=== PATIENT | female | born 1975 ===

== ENCOUNTER 2017-04-20 16:03 | Emergency (ER) | payer SELFPAY ==
[2017-04-20 16:12] VITALS: PULSE 73; RESP 19; TEMP 96.3; O2SAT 100
[2017-04-20 17:45] LABS: BASO % 0.8 % (0.0-2.0); EOS % 0.2 % (0.0-4.0); HEMATOCRIT 34.5 % (34.0-47.0); MEAN CELL VOLUME 84.4 fl (81.0-99.0); MEAN CORPUSCULAR HEMOGLOBIN 27.3 pg (27.0-31.0); MEAN CORPUSCULAR HGB CONC 32.4 g/dL (33.0-37.0); MEAN PLATELET VOLUME 8.8 fl (7.2-11.7); MONO # 0.3 K/uL (0.0-0.8); MONO % 6.6 % (0.0-10.0); NEUT # 3.7 K/uL (1.8-7.0); NEUT % 73.4 % (50.0-75.0); RED CELL DISTRIBUTION WIDTH 16.9 % (11.5-14.5); WHITE BLOOD COUNT 5.1 K/uL (4.8-10.8)
--- NOTE | 2017-04-20 17:47 | ED PDOC ---
HPI: Chest Pain Time Seen by Provider: 04/20/17 16:38 Chief Complaint (Nursing): Chest Pain Chief Complaint (Provider): Pain Under Left Breast History/Exam Limitations: no limitations Onset/Duration Of Symptoms: Days (2 days ago) Current Symptoms Are (Timing): Still Present Additional Complaint(s): 41 y/o female with a past medical history of hypertension, presents to the ED complaining of pain underneath her left breast, with an onset of 2 days ago. Patient informs the provider that her pain also worsens whenever she takes a deep breath or stretches her back. She also denies of any shortness of breath, trauma, cough, fever, palpitations, calf pain, or leg swelling. Patient also reports of no recent travel, smokes marijuana, but denies the use of cigarettes or alcohol. Of note, she has non-contributory surgical history and denies the use of oral contraceptive pills. Past Medical History Reviewed: Historical Data, Nursing Documentation, Vital Signs Vital Signs: Last Vital Signs Temp 96.3 F L 04/20/17 16:07 Pulse 73 04/20/17 16:07 Resp 19 04/20/17 16:07 BP 120/73 04/20/17 16:07 Pulse Ox 100 04/20/17 21:52 - Medical History PMH: HTN - Surgical History Surgical History: No Surg Hx - Family History Family History: States: Unknown Family Hx - Social History Current smoker - smoking cessation education provided: No Alcohol: None Drugs: Cannabis - Home Medications Home Medications: Ambulatory Orders Medication Instructions Recorded Naproxen [Naprosyn] 500 mg PO Q12 #14 tab 04/20/17 - Allergies Allergies/Adverse Reactions: Allergies Allergy/AdvReac Type Severity Reaction Status Date / Time aspirin Allergy RASH Verified 04/20/17 16:10 JJ Risk Score for UA/NSTEMI - JJ Risk Score Age > 64: NO 3 or more CAD Risk Factors: NO Known CAD (Stenosis greater than 50%): NO Aspirin use in past 7 days: NO Severe Angina: NO EKG ST changes greater than 0.5mm: NO Positive Cardiac Marker: NO JJ Score: 0 Risk %: 5% Wells Criteria for PE - Wells Criteria for Pulmonary Embolism Clinical Signs and Symptoms of DVT: No P.E is #1 Diagnosis, or Equally Likely: No Heart Rate >100: No Immobilization at least 3 days;Surgery previous 4 weeks: No Previous, objectively diagnosed PE or DVT: No Hemoptysis: No Malignancy w/treatment within 6 months, or palliative: No Total Score: 0 Review of Systems ROS Statement: Except As Marked, All Systems Reviewed And Found Negative Constitutional: Negative for: Fever Cardiovascular: Negative for: Palpitations Respiratory: Negative for: Cough, Shortness of Breath Musculoskeletal: Negative for: Leg Pain (calf pain or leg swelling) Physical Exam - Reviewed Nursing Documentation Reviewed: Yes Vital Signs Reviewed: Yes - Physical Exam Appears: Positive for: Non-toxic, No Acute Distress Head Exam: Positive for: ATRAUMATIC Skin: Positive for: Normal Color, Warm Eye Exam: Positive for: Normal appearance ENT: Positive for: Normal ENT Inspection Neck: Positive for: Normal, Painless ROM, Supple Cardiovascular/Chest: Positive for: Regular Rate, Rhythm. Negative for: Murmur Respiratory: Positive for: Normal Breath Sounds. Negative for: Respiratory Distress Gastrointestinal/Abdominal: Positive for: Normal Exam, Soft. Negative for: Tenderness Back: Positive for: Normal Inspection Extremity: Positive for: Normal ROM. Negative for: Calf Tenderness, Deformity, Other (leg edema) Neurologic/Psych: Positive for: Alert, Oriented. Negative for: Motor/Sensory Deficits - Laboratory Results Result Diagrams: 04/20/17 17:36 04/20/17 17:36 - ECG Interpretation Of ECG: NSR @ 73, no ST-T changes. O2 Sat by Pulse Oximetry: 100 (RA) Pulse Ox Interpretation: Normal - Radiology X-Ray: Interpreted by Me X-Ray Interpretation: No Acute Disease Medical Decision Making Medical Decision Making: Time: --17:01 Impression: --41 y/o female with Pleuritic Chest Pain Plan: --EKG --Labs --Troponin I --ED Urine --D Dimer Coag --PTT --PT --Chest X-ray Reassess --19:00 Patient to be signed out to Dr. Alex Hogue pending CT chest. Scribe Attestation: Documented by Alexi Noland acting as a scribe for Laxmi Merlos MD. Disposition - Clinical Impression Clinical Impression: Pleuritic chest pain - Patient ED Disposition Is Patient to be Admitted: Transfer of Care Discussed With : Alex Hogue Doctor Will See Patient In The: ED - Disposition Referrals: [facility] [Outside] Disposition: Transfer of Care Disposition Time: 19:00 (pending CT chest ) Condition: IMPROVED Prescriptions: Naproxen [Naprosyn] 500 mg PO Q12 #14 tab Instructions: Pleurisy (ED) Forms: [facility] (Azeri) Print Language: ARMENIAN Patient Signed Over To: Alex Hogue
[2017-04-20 17:59] LABS: ALB/GLOB RATIO 1.5 (1.0-2.1); ALKALINE PHOSPHATASE 57 U/L (38-126); ALT/SGPT 31 U/L (9-52); AST/SGOT 21 U/L (14-36); BILIRUBIN,TOTAL 0.6 mg/dl (0.2-1.3); BLOOD UREA NITROGEN 13 mg/dl (7-17); CALCIUM 9.1 mg/dL (8.4-10.2); CARBON DIOXIDE 26 mmol/L (22-30); CHLORIDE 106 mmol/L (98-107); GFR AFRICAN-AMERICAN > 60; GLUCOSE,RANDOM 82 mg/dL (65-105); POTASSIUM 4.2 MMOL/L (3.6-5.0); SODIUM 140 mmol/l (132-148); TOTAL PROTEIN 7.1 G/DL (6.3-8.2)
[2017-04-20 18:08] LABS: PARTIAL THROMBOPLASTIN TIME 23.9 Seconds (25.6-37.1)
[2017-04-20] MEDS ORDERED: Iodixanol 320 MG/ML 100 ML BOTTLE IV ONE (19:25)
--- NOTE | 2017-04-20 19:30 | ED PDOC ---
- Laboratory Results Result Diagrams: 04/20/17 17:36 04/20/17 17:36 - ECG O2 Sat by Pulse Oximetry: 100 (RA) Pulse Ox Interpretation: Normal Medical Decision Making Medical Decision Making: --19:00 Patient signed out to me by Dr. Merlos pending CT chest. Reassess --21:50 FINDINGS:CT Angiography Chest With Intravenous Contrast Pulmonary arteries: The main pulmonary artery measures 20 mm. No pulmonary embolism is identified. Aorta: The ascending thoracic aorta measures 26 mm. No thoracic aortic aneurysm. Lungs: Subpleural noncalcified nodule in the superior segment of the right lower lobe measuring 4 mm. Pleural space: Trace right pleural effusion. No pneumothorax. Heart: Unremarkable. No cardiomegaly. No significant pericardial effusion. No evidence of RV dysfunction. Mediastinum: Induration of anterior mediastinal fat which may reflect thymic tissue, upper normal for age. Bones/joints: No acute fracture. No dislocation. Soft tissues: Unremarkable. Lymph nodes: Unremarkable. No enlarged lymph nodes. Liver: The liver demonstrates several low attenuation foci including exophytic masses which measure up to approximately 4 cm. There is question of some nodular peripheral enhancement the in the more intraparenchymal lesions and may reflect hemangiomas. IMPRESSION: 1. Trace right pleural effusion. 2. 4 mm subpleural nodule in the posterior segment of the right upper lobe which is likely a lymph node. 3. Low attenuation masses in the liver. There is some suggestion of nodular peripheral enhancement and suggests the possibility of hemangiomas. 4. No pulmonary embolism is identified. In low-risk patients (minimal or absent history of smoking or other known risk factors), no follow-up is necessary. For high-risk patients (history of smoking or other known risk factors), an optional chest CT at 12 months could be performed. --21:50 Diagnosis: Pleuritic chest pain Patient to be discharged home with prescription for Naprosyn. Scribe Attestation: Documented by Alexi Noland acting as a scribe for Alex Hogue MD. Disposition - Clinical Impression Clinical Impression: Pleuritic chest pain - POA Present On Arrival: None - Disposition Referrals: [facility] [Outside] Disposition: Routine/Home Disposition Time: 21:50 Condition: IMPROVED Prescriptions: Naproxen [Naprosyn] 500 mg PO Q12 #14 tab Instructions: Pleurisy (ED) Forms: [employer] (Yakut), [facility] ED School/Work Excuse Print Language: GEORGIAN
[2017-04-20 23:15] VITALS: BP 125/72
--- NOTE | 2017-04-21 10:42 | CT ---
PROCEDURE: CT Chest with contrast (Pulmonary Angiogram) HISTORY: Pleuritic chest pain COMPARISON: None available. TECHNIQUE: Axial computed tomography images were obtained of the chest in the pulmonary arterial phase of enhancement. Coronal and sagittal reformatted images were created and reviewed. Intravenous contrast dose: 98 cc Visipaque 320 contrast Radiation dose: Total exam DLP = 270.27 mGy-cm. This CT exam was performed using one or more of the following dose reduction techniques: Automated exposure control, adjustment of the mA and/or kV according to patient size, and/or use of iterative reconstruction technique. FINDINGS: PULMONARY ARTERIES: There is a discrete elliptical shaped very low attenuation within the anterior margin of the pulmonary trunk which exhibits Hounsfield units in the -200 range consistent with a bubble of air likely introduced during injection of contrast material. The remainder of the visualized pulmonary trunk, right and left main, lobar, segmental and proximal subsegmental branches of the pulmonary arteries are relatively well opacified with no definitive filling defects seen to suggest acute pulmonary embolus. AORTA: No acute findings. No thoracic aortic aneurysm. The ascending thoracic aorta measures approximately 2.93 cm and descending thoracic aorta measures approximately 2.16 cm. LUNGS: Unremarkable. No nodule, mass or pulmonary consolidation. . Small approximately 4.4 mm rounded pleural-based nodule posterior aspect right lower lobe. There appears to be a tiny probable tiny pneumatocele left upper lobe measuring approximately 3.75 mm. . PLEURAL SPACES: Trace right-sided pleural effusion. No evidence of pneumothorax. HEART: Unremarkable. No cardiomegaly. No significant pericardial effusion. . There appears to be a tiny bubble of air within the anterior margin of the right ventricle as well likely air introduced during intravenous injection of contrast material LYMPH NODES: No significant mediastinal or hilar adenopathy. . . There is a small hiatal hernia with slight wall thickening of the distal esophagus likely due to protrusion of gastric mucosa. Possibility of esophagitis not excluded. BONES, CHEST WALL: Unremarkable. No fracture or destructive lesion OTHER FINDINGS: There is an approximately 3.8 x 2.7 cm elliptical shaped on area low attenuation lateral aspect right lobe liver with peripheral areas of faint contrast enhancement. The 2nd low-attenuation lesion seen in the inferomedial aspect right lower lobe measuring approximately 3.8 x 3.89 cm which also exhibits a peripheral areas of contrast enhancement Findings most likely represent hepatic hemangiomas however followup triple phase CT scan of the liver recommended to confirm. IMPRESSION: No evidence of pulmonary emboli however there is a small amount of air within the right ventricle and main pulmonary trunk likely introduced during injection of contrast material. Small 3.75 mmpneumatocele right lower lobe. There is also a 4.4 mm rounded nodular pleural-based density posterior aspect right lower lobe. Recommend followup CT scan in 6-12 months to assess stability. Trace right-sided effusion. Probable hemangioma within the right lobe liver. Follow-up triple phase CT scan of the liver recommended for further evaluation. Note this report was placed in [facility] review folder for followup
--- NOTE | 2017-04-21 13:11 | RAD ---
HISTORY: Pleuritic chest pain COMPARISON: No prior. TECHNIQUE: Chest PA and lateral FINDINGS: LUNGS: No active pulmonary disease. PLEURA: No significant pleural effusion identified. No pneumothorax apparent. CARDIOVASCULAR: Normal. OSSEOUS STRUCTURES: No significant abnormalities. VISUALIZED UPPER ABDOMEN: Normal. OTHER FINDINGS: None. IMPRESSION: No active disease. Concordant results with the preliminary interpretation rendered by the emergency department physician procedure.
--- NOTE | 2017-04-23 11:59 | CARD ---
APPROVED REPORT EKG Measurement Heart [id number] <Conclusion> Normal sinus rhythm Normal ECG
== END 2017-04-20 22:05 | disposition home or self-care (01) ==
LOC: H.ER 16:03
DX: R07.1 Chest pain on breathing (principal); I10 Essential (primary) hypertension
CPT/HCPCS: 71020; 71275; 80053; 81025; 84484; 85025; 85378; 85610; 85730; 93005; 99285; Q9967